=== PATIENT | male | born 1985 | race Caucasian/White ===

== ENCOUNTER 2018-08-01 05:35 | Emergency (ER) | payer SELFPAY ==
[~2018-08-01] VITALS: Ht 180.3 cm; Wt 91.0 kg
[2018-08-01] MEDS ORDERED: ALBUTEROL (0.083%) 2.5MG/3ML NEB HHN STA ×2 (06:25→07:48)
[2018-08-01] MEDS ORDERED: ACETAMINOPHEN 325MG TABLET PO STA (06:25)
[2018-08-01] MEDS ORDERED: SODIUM CHLORIDE 0.9% 1,000 ML IV ONE ×2 (06:25→07:48)
[2018-08-01] MEDS ORDERED: PREDNISONE 20MG TABLET PO STA (06:25)
[2018-08-01] MEDS ORDERED: IPRATROPIUM BROMIDE (0.02%) 0.5MG/2.5ML NEB HHN STA ×2 (06:25→07:48)
[2018-08-01 07:21] LABS: BASOPHILS % 0.6 % (0.0-2.0); EOSINOPHILS % 4.5 % (0.0-5.0); HEMATOCRIT. 43.7 % (42.0-52.0); HEMOGLOBIN. 14.9 g/dL (14.0-18.0); LYMPHOCYTES % 15.2 % (20.0-50.0); MEAN CORPUSCULAR HEMOGLOBIN 27.8 pg (28.0-32.0); MEAN CORPUSCULAR VOLUME 81.8 fL (80.0-94.0); MEAN PLATELET VOLUME 7.2 fl (7.4-10.4); MONOCYTES % 9.5 % (2.0-8.0); NEUTROPHILS % 70.2 % (40.0-76.0); PLATELET 232 x1000/uL (130-400); RED BLOOD CELL COUNT 5.35 mill/uL (4.7-6.1); RED CELL DISTRIBUTION WIDTH 17.6 % (11.6-14.6)
[2018-08-01 07:32] LABS: CHLORIDE 105 mEq/L (98-107)
[2018-08-01] MEDS ORDERED: KETOROLAC 30MG/ML VIAL IV ONE (08:30)
[2018-08-01 10:30] VITALS: BP 124/79
== END 2018-08-01 10:40 | disposition home or self-care (01) ==
LOC: ER 05:35
DX: B34.9 Viral infection, unspecified (principal); F12.10 Cannabis abuse, uncomplicated
CPT/HCPCS: 36415; 71045; 80053; 85025; 96374; 99284; J1885; J7030; J7512; J7611